=== PATIENT | female | born 1975 | race Caucasian/White ===

== ENCOUNTER 2019-06-24 09:45 | Emergency (ER) | payer MEDICAID ==
[~2019-06-24] VITALS: Ht 165.1 cm; Wt 76.4 kg
[~2019-06-24 09:45] MED LIST: HYDR1TAB PO; NO MEDICATIONS
[2019-06-24 10:32] LABS: BASOPHILS # (AUTO) 0.1 X10'3 (0-0.2); EOSINOPHILS # (AUTO) 0.2 X10'3 (0-0.9); EOSINOPHILS % (AUTO) 1.7 % (0-6); HEMOGLOBIN 14.3 g/dl (12.0-16.0); MEAN CORPUSCULAR HEMOGLOBIN 31.5 PG (27.0-31.0)
[2019-06-24 10:33] LABS: BASOPHILS % (AUTO) 1.3 % (0-1); HEMATOCRIT 40.1 % (35.0-45.0); LYMPHOCYTES # (AUTO) 2.3 X10'3 (1.1-4.8); MEAN CORPUSCULAR HGB CONC 35.7 g/dL (33.0-36.5); MEAN CORPUSCULAR VOLUME 88.3 FL (78-98); MEAN PLATELET VOLUME 8.1 FL (7.4-10.4); MONOCYTES # (AUTO) 0.4 X10'3 (0-0.9); MONOCYTES % (AUTO) 4.9 % (2-12); NEUTROPHILS # (AUTO) 6.1 X10'3 (1.8-7.7); NEUTROPHILS % (AUTO) 67.1 % (42-75); PLATELET COUNT 194 X10'3 (140-440); RED BLOOD COUNT 4.54 X10'6 (4.20-5.60); RED CELL DISTRIBUTION WIDTH 12.8 % (11.5-14.5); WHITE BLOOD COUNT 9.2 X10'3 (4.5-11.0)
[2019-06-24 10:39] LABS: ALANINE AMINOTRANSFERASE 40 U/L (12-78); ALBUMIN 3.9 G/DL (3.4-5.0); ALKALINE PHOSPHATASE 60 IU/L (46-116); ANION GAP 8 (8-16); ASPARTATE AMINO TRANSFERASE 27 U/L (10-37); BILIRUBIN,TOTAL 0.3 MG/DL (0.1-1.0); BLOOD UREA NITROGEN 10 MG/DL (7-18); BUN/CREATININE RATIO 11.5 (6.6-38.0); CALCIUM 8.7 MG/DL (8.5-10.1); CHLORIDE 102 MMOL/L (99-107); CREATININE 0.87 MG/DL (0.40-0.90); GLUCOSE 223 MG/DL (70-104); POTASSIUM 3.6 MMOL/L (3.5-5.1); SODIUM 137 MMOL/L (135-145); TOTAL CARBON DIOXIDE 27.1 MMOL/L (24-32); TOTAL PROTEIN 7.7 G/DL (6.4-8.2); eGFR 71 ML/MIN
[2019-06-24] MEDS ORDERED: normal saline 1000ML IV soln IVB ONE (11:05)
[2019-06-24] MEDS ORDERED: ondansetron/PF 4mg/2ml inj IV ONE (11:05)
[2019-06-24] MEDS ORDERED: AMOX-580 PO (11:24)
[2019-06-24 11:39] VITALS: BP 117/75
== END 2019-06-24 11:47 | disposition home or self-care (01) ==
LOC: ER 09:46
DX: J32.9 Chronic sinusitis, unspecified (principal); R11.2 Nausea with vomiting, unspecified; K21.9 Gastro-esophageal reflux disease without esophagitis; E11.9 Type 2 diabetes mellitus without complications; Z90.49 Acquired absence of other specified parts of digestive tract; Z90.710 Acquired absence of both cervix and uterus; Z90.89 Acquired absence of other organs; Z87.891 Personal history of nicotine dependence; Z56.0 Unemployment, unspecified; Z79.899 Other long term (current) drug therapy
CPT/HCPCS: 36415; 71045; 80053; 84484; 85025; 93005; 96361; 96374; 99284; J2405; J7030

== ENCOUNTER 2020-01-30 12:24 | Emergency (ER) | payer MEDICAID ==
[~2020-01-30] VITALS: Ht 165.1 cm; Wt 73.0 kg
--- NOTE | 2020-01-30 13:09 | NUR ---
PT SEEN BY DR. EPPERSON IN TRIAGE, ORDERS PLACED PER MD
[2020-01-30] MEDS ORDERED: normal saline 1000ML IV soln IVB ONE (13:10)
[2020-01-30] MEDS ORDERED: ondansetron/PF 4mg/2ml inj IV ONE (13:10)
[2020-01-30] MEDS ORDERED: morphine 4 MG/ML inj SYRINge IV PRN (13:10)
[2020-01-30 13:35] LABS: CLARITY,URINE CLEAR (Clear); COLOR,URINE STRAW (Yellow); GLUCOSE, URINE NEGATIVE (Neg); KETONES,URINE NEGATIVE (Neg); LEUKOCYTE ESTERASE ,URINE NEGATIVE (Neg); NITRITES, URINE NEGATIVE (Neg); OCCULT BLOOD,URINE NEGATIVE (Neg); PROTEIN,URINE NEGATIVE (Neg); UROBILINOGEN,URINE 0.2 E.U/dL (0.2-1.0)
[2020-01-30 13:40] LABS: UA COLLECTION TYPE CLN CATCH MIDSTREAM
[2020-01-30 13:42] LABS: BASOPHILS % (AUTO) 0.3 % (0-1); EOSINOPHILS # (AUTO) 0.3 X10'3 (0-0.9); EOSINOPHILS % (AUTO) 3.1 % (0-6); HEMOGLOBIN 14.7 g/dl (12.0-16.0); LYMPHOCYTES # (AUTO) 2.4 X10'3 (1.1-4.8); LYMPHOCYTES % (AUTO) 25.5 % (21-51); MEAN CORPUSCULAR HEMOGLOBIN 32.4 PG (27.0-31.0); MEAN CORPUSCULAR HGB CONC 34.1 g/dL (33.0-36.5); MEAN PLATELET VOLUME 8.4 FL (7.4-10.4); MONOCYTES # (AUTO) 0.4 X10'3 (0-0.9); MONOCYTES % (AUTO) 4.2 % (2-12); NEUTROPHILS # (AUTO) 6.3 X10'3 (1.8-7.7); NEUTROPHILS % (AUTO) 66.9 % (42-75); PLATELET COUNT 222 X10'3 (140-440); RED BLOOD COUNT 4.52 X10'6 (4.20-5.60); RED CELL DISTRIBUTION WIDTH 13.3 % (11.5-14.5); WHITE BLOOD COUNT 9.4 X10'3 (4.5-11.0)
[2020-01-30 13:46] LABS: ALANINE AMINOTRANSFERASE 49 U/L (12-78); ALKALINE PHOSPHATASE 78 IU/L (46-116); ANION GAP 10 (8-16); ASPARTATE AMINO TRANSFERASE 41 U/L (10-37); BILIRUBIN,TOTAL 0.4 MG/DL (0.1-1.0); BLOOD UREA NITROGEN 13 MG/DL (7-18); BUN/CREATININE RATIO 13.7 (6.6-38.0); CALCIUM 8.7 MG/DL (8.5-10.1); CHLORIDE 105 MMOL/L (99-107); CREATININE 0.95 MG/DL (0.40-0.90); GLUCOSE 155 MG/DL (70-104); LIPASE 117 U/L (73-393); POTASSIUM 3.9 MMOL/L (3.5-5.1); SODIUM 144 MMOL/L (135-145); eGFR 64 ML/MIN
[2020-01-30] MEDS ORDERED: ketorolac trometh inj. 60 MG/2 ML VIAL IM ONE (14:05)
[2020-01-30] MEDS ORDERED: HYDROcodone/acetaminophen 5mg/325mg tablet PO ONE (14:05)
[2020-01-30] MEDS ORDERED: ACET-3067 PO (14:06)
[2020-01-30] MEDS ORDERED: CYCL-1 PO (14:06)
[2020-01-30 14:20] VITALS: BP 122/87
== END 2020-01-30 14:23 | disposition home or self-care (01) ==
LOC: ER 12:24
DX: M54.5 Low back pain (principal); R11.10 Vomiting, unspecified; K21.9 Gastro-esophageal reflux disease without esophagitis; E11.9 Type 2 diabetes mellitus without complications; Z90.49 Acquired absence of other specified parts of digestive tract; Z90.710 Acquired absence of both cervix and uterus; Z90.89 Acquired absence of other organs; Z56.0 Unemployment, unspecified; Z79.899 Other long term (current) drug therapy
CPT/HCPCS: 36415; 74176; 80053; 81003; 83690; 85025; 96372; 99284; J1885

== ENCOUNTER 2020-07-06 10:53 | Emergency (ER) | payer MEDICAID ==
[~2020-07-06] VITALS: Ht 165.1 cm; Wt 75.0 kg
[~2020-07-06 10:53] MED LIST changes: +CYCL-1 PO
== END 2020-07-06 11:19 | disposition home or self-care (01) ==
LOC: ER 10:53
DX: R05 Cough (principal); Z20.828 Contact with and (suspected) exposure to other viral communicable diseases; K21.9 Gastro-esophageal reflux disease without esophagitis; E11.9 Type 2 diabetes mellitus without complications; Z90.49 Acquired absence of other specified parts of digestive tract; Z90.710 Acquired absence of both cervix and uterus; Z90.89 Acquired absence of other organs; Z56.0 Unemployment, unspecified; Z79.899 Other long term (current) drug therapy
CPT/HCPCS: 36415; 87635; 99283

== ENCOUNTER 2020-08-08 10:49 | Emergency (ER) | payer MEDICAID ==
[~2020-08-08] VITALS: Ht 165.1 cm; Wt 77.3 kg
[2020-08-08 11:26] VITALS: BP 129/96
[2020-08-08 12:53] LABS: BASOPHILS % (AUTO) 0.4 % (0-1); EOSINOPHILS # (AUTO) 0.4 X10'3 (0-0.9); EOSINOPHILS % (AUTO) 4.5 % (0-6); HEMATOCRIT 42.2 % (35.0-45.0); HEMOGLOBIN 14.6 g/dl (12.0-16.0); LYMPHOCYTES # (AUTO) 2.4 X10'3 (1.1-4.8); LYMPHOCYTES % (AUTO) 24.2 % (21-51); MEAN CORPUSCULAR HEMOGLOBIN 32.4 PG (27.0-31.0); MEAN CORPUSCULAR HGB CONC 34.6 g/dL (33.0-36.5); MEAN CORPUSCULAR VOLUME 93.4 FL (78-98); MEAN PLATELET VOLUME 8.6 FL (7.4-10.4); MONOCYTES # (AUTO) 0.5 X10'3 (0-0.9); MONOCYTES % (AUTO) 5.2 % (2-12); NEUTROPHILS # (AUTO) 6.5 X10'3 (1.8-7.7); NEUTROPHILS % (AUTO) 65.7 % (42-75); PLATELET COUNT 204 X10'3 (140-440); RED BLOOD COUNT 4.52 X10'6 (4.20-5.60); RED CELL DISTRIBUTION WIDTH 12.8 % (11.5-14.5); WHITE BLOOD COUNT 9.9 X10'3 (4.5-11.0)
[2020-08-08 13:10] LABS: ALANINE AMINOTRANSFERASE 30 U/L (12-78); ALKALINE PHOSPHATASE 79 IU/L (46-116); ANION GAP 6 (8-16); ASPARTATE AMINO TRANSFERASE 30 U/L (10-37); BILIRUBIN,TOTAL 0.4 MG/DL (0.1-1.0); BLOOD UREA NITROGEN 14 MG/DL (7-18); BUN/CREATININE RATIO 16.1 (6.6-38.0); CALCIUM 9.1 MG/DL (8.5-10.1); CHLORIDE 105 MMOL/L (99-107); CREATININE 0.87 MG/DL (0.40-0.90); GLUCOSE 238 MG/DL (70-104); POTASSIUM 4.3 MMOL/L (3.5-5.1); SODIUM 140 MMOL/L (135-145); TOTAL CARBON DIOXIDE 28.6 MMOL/L (24-32); eGFR 71 ML/MIN
== END 2020-08-08 13:50 | disposition home or self-care (01) ==
LOC: ER 10:49
DX: R06.02 Shortness of breath (principal); R07.89 Other chest pain; Z20.828 Contact with and (suspected) exposure to other viral communicable diseases; K21.9 Gastro-esophageal reflux disease without esophagitis; E11.9 Type 2 diabetes mellitus without complications; Z86.19 Personal history of other infectious and parasitic diseases; Z90.49 Acquired absence of other specified parts of digestive tract; Z90.710 Acquired absence of both cervix and uterus; Z90.89 Acquired absence of other organs; Z56.0 Unemployment, unspecified; Z79.899 Other long term (current) drug therapy
CPT/HCPCS: 36415; 71045; 80053; 84484; 85025; 93005; 99285

== ENCOUNTER 2020-08-09 09:56 | Emergency (ER) | payer MEDICAID ==
[~2020-08-09] VITALS: Ht 165.1 cm; Wt 77.3 kg
== END 2020-08-09 11:40 | disposition home or self-care (01) ==
LOC: ER 09:58
DX: Z20.828 Contact with and (suspected) exposure to other viral communicable diseases (principal); R06.00 Dyspnea, unspecified; K21.9 Gastro-esophageal reflux disease without esophagitis; E11.9 Type 2 diabetes mellitus without complications; Z90.49 Acquired absence of other specified parts of digestive tract; Z90.710 Acquired absence of both cervix and uterus; Z90.89 Acquired absence of other organs; Z56.0 Unemployment, unspecified; Z79.899 Other long term (current) drug therapy
CPT/HCPCS: 99281

== ENCOUNTER 2023-06-28 13:35 | Emergency (ER) | payer MEDICAID ==
[~2023-06-28] VITALS: Ht 165.1 cm; Wt 84.1 kg
[2023-06-28] MEDS ORDERED: BENZ-38 PO (16:54)
[2023-06-28] MEDS ORDERED: AZIT500T2 PO (16:54)
[2023-06-28] MEDS ORDERED: ALBU8HFA PO (16:54)
[2023-06-28 17:23] VITALS: BP 119/95; PULSE 83; RESP 15; TEMP 98.5; O2SAT 98
== END 2023-06-28 17:31 | disposition home or self-care (01) ==
LOC: ER 13:35
DX: J06.9 Acute upper respiratory infection, unspecified (principal); Z20.822 Contact with and (suspected) exposure to COVID-19; E11.9 Type 2 diabetes mellitus without complications; K21.9 Gastro-esophageal reflux disease without esophagitis; Z79.899 Other long term (current) drug therapy
CPT/HCPCS: 36415; 71045; 87502; 87503; 87811; 99284

== ENCOUNTER 2025-04-07 13:15 | Inpatient (IN) | payer MEDICAID ==
[~2025-04-07] VITALS: Ht 165.1 cm; Wt 75.0 kg
[~2025-04-07 13:15] MED LIST changes: +ALBU8HFA PO
--- NOTE | 2025-04-07 13:28 | ELECTROCARDIOGRAPH REPORT ---
[facility] Test Date: 2025-04-07 Test Time: 13:25:24 Pat Name: TYE MERRITT Department: EMERGENCY ROOM Room: Gender: F Clinical Engineer: ADDIS : 1975 Requested By: ZAYDA ARNETT Order Number: [id number] Reading MD: Measurements Intervals Lorraine Rate: 81 P: -20 NM: 152 QRS: 69 QRSD: 90 T: 36 QT: 377 QTc: 438 Interpretive Statements Sinus rhythm Low voltage, precordial leads Borderline ST depression, inferior leads Baseline wander in lead(s) V6 Please click the below link to view image of tracing.
[2025-04-07 14:09] LABS: MEAN PLATELET VOLUME 8.2 FL (7.4-10.4); RED CELL DISTRIBUTION WIDTH 13.0 % (11.5-14.5)
[2025-04-07 14:25] LABS: LEUKOCYTE ESTERASE ,URINE NEGATIVE (Neg); NITRITES, URINE NEGATIVE (Neg); OCCULT BLOOD,URINE NEGATIVE (Neg)
[2025-04-07 14:26] LABS: URINE HCG NEGATIVE (NEG)
[2025-04-07 14:30] LABS: UA COLLECTION TYPE CLN CATCH MIDSTREAM
[2025-04-07 14:32] LABS: CREATININE 0.99 MG/DL (0.40-0.90); PRO BRAIN NATRIURETIC PEPTIDE 113 PG/ML (0-125); TOTAL CARBON DIOXIDE 21.2 MMOL/L (24-32); eCRCL 63 ML/MIN; eGFR 60 ML/MIN
--- NOTE | 2025-04-07 15:01 | RADIOLOGY REPORT ---
CLINICAL INFORMATION: Chest pain. TECHNIQUE: Single AP portable chest radiograph was obtained. COMPARISON: DI CHEST,SINGLE VIEW on DOS: 06/28/23, CHEST,SINGLE VIEW on DOS: 08/08/20, CHEST,SINGLE VIE W on DOS: 06/24/19 FINDINGS: Lungs: Clear. Cardiac: Heart size is within normal limits. Pulmonary vasculature: Unremarkable. Mediastinum/corina: Unremarkable. Bones: No acute osseous abnormality identified. Other: No other significant findings. IMPRESSION: No evidence of acute disease in the chest.
--- NOTE | 2025-04-07 15:48 | Physician Documentation ---
History of Present Illness General Chief Complaint: Chest Pain Stated Complaint: MULTIPLE MEDICAL COMPLAINTS Time Seen by MD: 15:46 OK to notify your PCP?: No Primary Medical Doctor: [facility] Source: patient, RN notes reviewed Mode of Arrival: POV Exam Limitations: no limitations History of Present Illness Initial Comments 49-year-old female, who is a former smoker with a history of diabetes on insulin for the last 8-10 years and more recently Ozempic, presents via EMS with complaints of sharp left-sided chest pain that began at approximately 1230 today. Patient reports she was driving at the time when she had sudden onset of sharp severe left-sided chest pain that radiated into her back. Patient also had "foggy" mentation with onset, as well as shortness of breath, and left hand, left face, and left neck numbness. Symptoms improved after approximately 30 minutes, however she continues to have mild left-sided chest pain and difficulty taking a deep breath. Pain slightly increases with taking a deep breath. She denies history of similar chest pain. She has never had a stress test or cardiac workup. Later, patient notes that yesterday she had a slight stabbing pain in the left chest that lasted a few seconds. Medication Reconciliation Allergies: Coded Allergies: No Known Allergies (Unverified , 04/07/25) Scheduled Cyclobenzaprine* (Cyclobenzaprine*), 1 TAB PO TID Hydrocodone/Acetaminophen (Vicodin 5-500 Tablet), 1 TAB PO Q4H PRN FOR PAIN Insulin Glargine,Hum.rec.anlog (Basaglar Kwikpen U-100), 10 HS, (Reported) Semaglutide (Ozempic), 2 MG SUBCUT Q7D, (Reported) Scheduled PRN albuterol inhaler (Pro-Air Inhaler), 1 PUFF PO TID PRN for stridor Discontinued Medications [No Medications], (Reported) Discontinued Reason: patient no longer taking Past Medical History Past Medical History: GERD, Diabetes, *INFECTIOUS DZ* Past Surgical History: cholecystectomy, hysterectomy, tonsillectomy Smoking: Cigarettes Alcohol Use: Rarely Occupation: unemployed Review of Systems All Other Systems at this time: Reviewed and Negative ROS left chest pain as well as other positive symptoms stated above in the HPI, otherwise all systems are reviewed and negative. Physical Exam Physical Exam Vital Signs: RN Vital Signs have been reviewed: Yes, Temperature: 97.5, Source: Temporal, Heart Rate: 84, Respiratory Rate: 22, BP: 160/96, Pulse Oximetry: 100, Weight: 75.000 Oxygen Flow Rate: 0 Pulse Oximetry Reflects: adequate oxygenation Physical Exam VITALS: Reviewed and as above. GENERAL: Alert, no apparent distress. HEENT: Normocephalic, atraumatic, PERRL, EOMI, dry mucosa RESPIRATORY: Lungs clear, normal breath sounds, no respiratory distress. CHEST: No reproducible chest wall tenderness. No accessory muscle use, no retractions CV: Regular rate, rhythm, no edema, no murmur, No: JVD GI: Soft, non-tender, bowels sounds present, no rebound, guarding, or rigidity MUSCULOSKELETAL No deformities, no edema SKIN: Warm and dry, no rash NEURO: Oriented x4, No motor or sensory deficit PSYCH: Normal mood and affect, no agitation Progress Progress Note 1641: Hospitalist paged. 1743: Admission orders placed by Dr. Meier, hospitalist. Results/Orders Reviewed/noted all lab results: Yes Results/Orders Orders - ZAYDA PINZON MD Chest,Single View (04/07/25 13:24) Monitor (04/07/25 13:24) Saline Lock (04/07/25 13:24) Oxygen (04/07/25 13:24) Page Hospitalist (04/07/25 16:41) Fill Out Med Reconciliation (04/07/25 16:41) Completed Orders - ZAYDA PINZON MD Chest,Single View (04/07/25 13:24) Cbc/Diff (04/07/25 13:24) BMP (04/07/25 13:24) PBNP (04/07/25 13:24) Electrocardiogram (04/07/25 13:24) Hs Troponin I W Calculations (04/07/25 13:24) Hs Troponin I W Calculations (04/07/25 15:24) Hs Troponin I W Calculations (04/07/25 16:24) Urinalysis, Cult If Indicated (04/07/25 13:25) Hcg, Ur Ql (04/07/25 13:25) D-Dimer (04/07/25 16:19) Aspirin 81mg Chew Tablet (Aspirin 81mg C (04/07/25 16:30) Vital Signs 04/07/25 04/07/25 13:16 16:20 Temp 97.5 Pulse 84 Resp 22 16 B/P (MAP) 160/96 Pulse Ox 100 O2 Flow Rate 0 Laboratory Tests Test 04/07/25 13:25 04/07/25 13:32 04/07/25 15:17 04/07/25 16:30 Urine Specimen Description Cln catch midstream Urine Color Yellow Urine Clarity Clear Urine pH 6.5 Urine Specific [place] <=1.005 Urine Protein Negative Urine Glucose (UA) Negative Urine Ketones Negative Urine Occult Blood Negative Urine Nitrite Negative Urine Bilirubin Negative Urine Urobilinogen 0.2 Urine Leukocyte Esterase Negative Urine Culture Indicated Not ind Volume Urine Centrifuged 10 ml Urine HCG, Qualitative Negative Urine Comment White Blood Count 6.7 Red Blood Count 4.58 Hemoglobin 14.2 Hematocrit 40.1 Mean Corpuscular Volume 87.7 Mean Corpuscular Hemoglobin 31.0 Mean Corpuscular Hemoglobin Concent 35.3 Red Cell Distribution Width 13.0 Platelet Count 305 Mean Platelet Volume 8.2 Neutrophils (%) (Auto) 53.6 Lymphocytes (%) (Auto) 37.5 Monocytes (%) (Auto) 5.8 Eosinophils (%) (Auto) 2.4 Basophils (%) (Auto) 0.7 Neutrophils # (Auto) 3.6 Lymphocytes # (Auto) 2.5 Monocytes # (Auto) 0.4 Eosinophils # (Auto) 0.2 Basophils # (Auto) 0.0 CBC Comment D-Dimer 0.60 H D-Dimer Comment Sodium Level 140 Potassium Level 3.5 Chloride Level 107 Carbon Dioxide Level 21.2 L Anion Gap 12 Blood Urea Nitrogen 13 Creatinine 0.99 H Estimated GFR/1.73 m2 60 BUN/Creatinine Ratio 13.1 Glucose Level 117 H Calcium Level 9.6 Troponin I High Sensitivity < 4 L 4 5 Troponin I High Sens Percent Delta 25 Troponin I Hi Sens Absolute Change 1 Pro-B-Type Natriuretic Peptide 113 Albumin 4.2 Chemistry Comments EKG/XRAY/CT/US/VASC/MRI EKG : Intepreting Monitor?: Yes Additional Comment 9831: EKG interpreted by myself to show NSR at a rate of 81bpm. Normal axis, nonspecific ST abnormalities. No STEMI. Chest X-Ray : Additional Comments CLINICAL INFORMATION: Chest pain. TECHNIQUE: Single AP portable chest radiograph was obtained. COMPARISON: DI CHEST,SINGLE VIEW on DOS: 06/28/23, CHEST,SINGLE VIEW on DOS: 08/08/20, CHEST,SINGLE VIEW on DOS: 06/24/19 FINDINGS: Lungs: Clear. Cardiac: Heart size is within normal limits. Pulmonary vasculature: Unremarkable. Mediastinum/corina: Unremarkable. Bones: No acute osseous abnormality identified. Other: No other significant findings. IMPRESSION: No evidence of acute disease in the chest. Reviewed by myself. Heart Score: Heart Score Response (Comments) Value History Moderate Suspicious 1 EKG Repolarization Disturb 1 Age 45-64 1 Risk Factors 1 or 2 risk factors 1 Troponin Normal limit 0 Total 4 Medical Decision Making Additional info obtained from: old records (last seen in 2022 for respiratory infection, no prior admissions) Findings The patient's EKG was interpreted by me as being a normal axis with a sinus rhythm of [address]-elevation or ST-depression appreciated my impression is a normal EKG with a normal axis. Time of EKG is 1325 The patient presented with a an episode of chest pain, the patient's EKG was int erpreted by myself her chest x-ray was independently interpreted by me as showing no acute abnormality it showed normal-appearing lung connelly normal mediastinum and normal cardiac silhouette. Her labs were fairly unremarkable. The patient does have some risk factors for coronary disease she will be admitted to the hospitalist for further evaluation. Prior hospitalizations have been reviewed all labs were reviewed. The patient's railroad brakeman was interpreted as a sinus rhythm and her pulse oximetry was interpreted as normal and adequate. Departure Time of Disposition: 16:41 Disposition: ADMITTED INPATIENT Admitted to Inpatient Unit: yes, to hospitalist Impression: Primary Impression: Chest pain Qualified Codes: R07.9 - Chest pain, unspecified Condition: Fair Education Educated: Patient Educated regarding: diagnosis, treatment, prognosis Signature Scribe Signature: Scribed for Zayda Pinzon MD by Kelly Fletcher . 04/07/25 16:28 Attestation: The note accurately reflects work and decisions made by me.Zayda Pinzon MD 04/10/25 11:57 ZAYDA PINZON MD Apr 07, 2025 15:48 KELLY SHAIKH Apr 07, 2025 16:28
--- NOTE | 2025-04-07 17:41 | HISTORY AND PHYSICAL ---
History & Physical Providers to ~ History of Present Illness Reason for Admit\Complaint: Chest pain History of Present Illness 49 years old female with a history of diabetes mellitus, requiring insulin, presented to the ER for evaluation of left-sided chest pain which started around 12:30 p.m. today. Patient reported she was driving at that time and had sudden onset of pain which radiated towards her back. Patient also felt foggy in her brain. Had shortness of breaths and numbness of the left face hand and neck. Symptom lasted about 30 minutes and patient is continuing to have some difficulty taking deep breaths. She denies having any recent fever chills nausea vomiting dysuria frequency urgency hematuria melena or bright red blood per rectum. She denies having any focal neurological symptoms. Patient is being admitted for further evaluation Allergies: Coded Allergies: No Known Allergies (Unverified , 04/07/25) Home Medications Home Medications Active Pro-Air Inhaler (Albuterol) 8.5 Gm Inhaler 1 Puff PO TID PRN Cyclobenzaprine* (Cyclobenzaprine HCl) 10 Mg Tablet 1 Tab PO TID 5 Days Vicodin 5-500 Tablet (Acetaminophen/Hydrocodone Bitart) 5 Mg/500 Mg Tablet 1 Tab PO Q4H PRN FOR PAIN 5 Days Reported [No Medications] Past Medical History Past Medical History IDDM Past Surgical History Surgical History Comment Cholecystectomy, hysterectomy, tonsillectomy Family History Family History: Family history was reviewed; no changes noted. Past Social History Social History Comment Does not drink or do any drugs. 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 Health Maintenance Health Maintenance Patient is current on immunizations ROS ROS All other systems are reviewed and are negative except as mentioned in HPI Exam Vitals: Vital Signs Date Time Temp Pulse Resp B/P (MAP) Pulse Ox O2 Delivery O2 Flow Rate FiO2 04/07/25 16:20 16 04/07/25 13:16 97.5 84 100 0 General: Awake alert cooperative in no acute distress HEENT: Normocephalic, atraumatic, extraocular movements intact, sclerae anicteric, conjunctiva pink, moist oral mucosa. Neck: Supple, no JVD, trachea midline Chest: Clear to auscultation, no wheezes crackles rhonchi Cardiovascular: Regular rate rhythm, no murmur or gallop rub Abdomen: Soft, nontender, no organomegaly Extremities: No cyanosis clubbing or edema Central Nervous System: Nonfocal. Moves all four extremities Musculoskeletal: No joint swelling or deformities Skin: No rash or ulcers Diagnostic Data Last Recorded Lab Results: 04/07/25 1332 04/07/25 1332 Diagnostic Data: Laboratory Tests Test 04/07/25 13:32 D-Dimer 0.60 MG/L FEU (0-0.50) H D-Dimer Comment Additional Plan 49 years old female presented to the ER for evaluation of left-sided chest pain 1. Left-sided chest pain: Likely musculoskeletal ACS ruled out with negative troponin. We will check a Lexiscan and CTA to rule out PE. 2. IDDM: Carb controlled diet. Hyper/hypoglycemia protocol 3. Code status: Discussed with the patient. She wishes to be a Full code Date of Service: Apr 07, 2025 Billing Provider: AKILAH DELGADO MD Common Visit Codes: [id number] INP/OBS CARE (HIGH) AKILAH DELGADO MD Apr 07, 2025 17:41
[2025-04-07] MEDS ORDERED: PERFLUTREN PROTEIN-A MICROSPHR (Optison) 0.22 MG/ML 3ML VIAL IV ONE (17:45)
[2025-04-07] MEDS ORDERED: magnesium Cl slow-release 64mg tablet PO PRN (17:45)
[2025-04-07] MEDS ORDERED: magnesium sulf-water 4G/100mL 100 ML IV PRN (17:45)
[2025-04-07] MEDS ORDERED: potassium Cl 40MEQ/1/2NS 520ml 520 ML IV PRN (17:45)
[2025-04-07] MEDS ORDERED: ondansetron/PF 4mg/2ml inj IV PRN (17:45)
[2025-04-07] MEDS ORDERED: potassium Cl 20 mEq SR tablet PO PRN ×2 (17:45)
[2025-04-07] MEDS ORDERED: magnesium sulf-water 2g/50mL 50 ML IV PRN (17:45)
[2025-04-07] MEDS: normal saline 1000ml 1,000 ML IV SCH (18:14)
[2025-04-07] MEDS: K and/or MAG REPLACEMENT MC SCH (20:00)
[2025-04-08] MEDS: HYDROcodone/acetaminophen 5mg/325mg tablet PO PRN (04:30)
[2025-04-08 04:50] VITALS: BP 134/95; PULSE 66; RESP 19; TEMP 97.5; O2SAT 100
[2025-04-08] MEDS ORDERED: INSU100I31 (05:18)
[2025-04-08] MEDS ORDERED: SEMA2PEN SUBCUT (05:18)
[2025-04-08 06:00] VITALS: BP 134/95; PULSE 66; RESP 19; TEMP 97.5; O2SAT 100
[2025-04-08 06:31] LABS: MEAN PLATELET VOLUME 7.8 FL (7.4-10.4); RED CELL DISTRIBUTION WIDTH 13.3 % (11.5-14.5)
[2025-04-08 06:52] VITALS: RESP 19; O2SAT 100
[2025-04-08 06:54] LABS: CREATININE 1.09 MG/DL (0.40-0.90); TOTAL CARBON DIOXIDE 27.3 MMOL/L (24-32); eCRCL 57 ML/MIN; eGFR 54 ML/MIN
[2025-04-08] MEDS ORDERED: DEXTROSE 15 GM of carb/4 tabs (each vial/BOTTLE has 4 tablets) PO PRN ×2 (15:40)
[2025-04-08] MEDS ORDERED: dextrose 50%-water 50ml dispensing syringe IV PRN ×2 (15:40)
[2025-04-08] MEDS ORDERED: glucagon, human recombinant 1mg kit SUBCUT PRN (15:40)
--- NOTE | 2025-04-08 15:40 | PROGRESS NOTE ---
Daily Progress Note Providers to CC ~ Antibiotic Timeout Antibiotic Ordered?: No Subjective Patient is seen resting comfortably. Continues to have left-sided chest pain. Objective Vital Signs Date Time Temp Pulse Resp B/P (MAP) Pulse Ox O2 Delivery O2 Flow Rate FiO2 04/08/25 08:00 Room Air 04/08/25 06:52 19 100 04/08/25 06:00 97.5 66 134/95 (108) 04/07/25 13:16 0 Result Diagram: 04/08/25 0541 04/08/25 0541 Awake alert cooperative in no acute distress HEENT normocephalic atraumatic extraocular movements intact Neck supple, no JVD Chest: Clear to auscultation, no wheezes crackles rhonchi Heart: Regular rate rhythm, no murmur or gallop rub Abdomen is soft nontender no organomegaly Extremities no cyanosis clubbing or edema Neuro exam is nonfocal Musculoskeletal: Left chest wall tenderness. No joint swelling or deformities. Coagulation Studies Laboratory Tests Test 04/07/25 13:32 D-Dimer 0.60 MG/L FEU (0-0.50) H D-Dimer Comment Other Results Medications reviewed Problem\Assessment\Plan 49 years old female presented to the ER for evaluation of chest pain 1. Left-sided chest pain: Likely musculoskeletal. Lexiscan is pending. Ruled out for ACS by negative cardiac enzymes. 2. IDDM: Carb controlled diet. Hyper/hypoglycemia protocol. 3. Code status: Full code Date of Service: Apr 08, 2025 Billing Provider: AKILAH DELGADO MD Common Visit Codes: [id number] INP/OBS CARE(MOD) AKILAH DELGADO MD Apr 08, 2025 15:39
[2025-04-08] MEDS: INSULIN LISPRO 100 UNIT/ML INSULN.PEN MULTI-DOSE SQ SCH (17:00)
[2025-04-08 18:00] VITALS: BP 123/77; PULSE 82; RESP 17; TEMP 98.4; O2SAT 100
[2025-04-08 22:00] VITALS: BP 113/74; PULSE 69; RESP 16; TEMP 97.8; O2SAT 99
[2025-04-09] VITALS (11 sets, daily range): BP systolic 94–119; BP diastolic 57–81; PULSE 63–110; RESP 13–16; TEMP 97.3–97.7; O2SAT 97–100
[2025-04-09 06:35] LABS: MEAN PLATELET VOLUME 7.8 FL (7.4-10.4); RED CELL DISTRIBUTION WIDTH 13.3 % (11.5-14.5)
[2025-04-09 06:55] LABS: CREATININE 0.76 MG/DL (0.40-0.90); TOTAL CARBON DIOXIDE 22.8 MMOL/L (24-32); eCRCL 81 ML/MIN; eGFR 81 ML/MIN
[2025-04-09] MEDS ORDERED: metoprolol tartrate 1mg/ml inj IV PRN (11:35)
[2025-04-09] MEDS ORDERED: aminophylline 250mg/10ml inj. IV PRN (11:35)
[2025-04-09] MEDS: regadenoson 0.4mg/5ml syringe IV PRN (13:50)
--- NOTE | 2025-04-09 14:49 | RADIOLOGY REPORT ---
Reason for study/Clinical History: Severe left-sided chest pain Comparison Study: None Myocardial Perfusion Study with SPECT Technique: The patient received an intravenous injection of 8.7 mCi of technetium-99m Sestamibi whi hardik at rest. After a short delay, SPECT tomographic images of the heart were obtained. The patient abraham bond went to the stress lab where they received an intravenous Lexiscan utilizing standard protocol. 35.1 mCi of technetium-99m Sestamibi was injected intravenously immediately after the start of the infusion. Gated SPECT tomographic images of the heart were acquired and processed. Findings: Rotating planar images show no significant attenuation artifact. The left ventricular size is within normal limits. Stress tomographic images demonstrate normal perfusion. Resting tomographic images demonstrate a similar pattern. Gated portion of the study shows normal wall motion and myocardial thickening. The left ventricular ejection fraction is 70%. (normal greater than 50%) Impression: Normal left ventricular size, wall motion, and function, without evidence of infarction or of myocard ium at ischemic risk. The left ventricular ejection fraction is 70%.
--- NOTE | 2025-04-09 19:13 | CARDIOLOGY REPORT ---
APPROVED REPORT EXAM: Comprehensive 2D, Doppler, and color-flow Echocardiogram. Patient Location: 4013 [address] Heart Rate: 60's bpm Rhythm: SINUS Indications CORONARY ARTERY DISEASE CHEST PAIN SHORTNESS OF BREATH DIABETES MELLITUS Audience Coordinator: NONE Previous echo: NONE 2D Dimensions RVDd 2.5 cm IVSd 1.0 (0.7-1.1cm) LVDd 4.4 cm PWd 1.0 (0.7-1.1cm) IVSs 1.3 (0.8-1.2cm) LVDs 2.6 (2.5-4.0cm) PWs 1.4 (0.8-1.2cm) LVOT Diameter 2.06 (1.8-2.4cm) LVEF(%) 72.5 (>50%) FS (%) 41.4 % SV 62.9 ml CO 4.0 L/min M-Mode Dimensions Left Atrium(MM) 3.42 (2.5-4.0cm) Aortic Root 2.64 (2.2-3.7cm) MV EPSS 0.3 (<0.5cm) Aortic Valve AoV Peak Gatito. 135.1 cm/s AoV VTI 27.0 cm AO Peak GR. 7.3 mmHg AO Mean GR. 4 mmHg LVOT VTI 20.57 cm LVOT Peak Gatito. 93.0 cm/s DELIA(VTI)/BSA 2.53 cm2/m2 DELIA (VTI) 2.53 cm2 Mitral Valve MV E Velocity 74.9 cm/s MV Peak Gr. 3 mmHg MV DECEL TIME 240 ms MV A Velocity 74.6 cm/s MV PHT 68 ms E/A Ratio 1.0 MVA (PHT) 3.24 cm2 MV VMax84.6 cm/s TDI Lateral E' P. V11.85 cm/s E/Lateral E' 6.3 Tricuspid Valve TR P. Velocity 181 cm/s RAP ESTIMATE 10 mmHg TR Peak Gr. 13 mmHg RVSP 23 mmHg Pulmonary Vein S1 Velocity 56.7 cm/s D2 Velocity 41.9 cm/s PVa Ofwrvocu23.3 cm/s PVa [id number] msec LEFT VENTRICLE Normal LV size and wall thickness. Overall systolic function is normal. Overall LVEF is 65-70%. RIGHT VENTRICLE RV is normal size and function. ATRIA The left atrium size is normal. AORTIC VALVE Trileaflet AV appears normal without stenosis. No insufficiency. MITRAL VALVE Mild MV annular calcification without stenosis. Trace regurgitation. TRICUSPID VALVE TV appears structurally normal with trace regurgitation. PULMONIC VALVE Normal PV without stenosis, physiologic insufficiency. GREAT VESSELS The aortic root is normal in size. PERICARDIUM Normal pericardium. No effusion. Other Information Study Quality: Adequate Conclusion Overall LVEF is 65-70%. Normal LV size and wall thickness. Overall systolic function is normal. RV is normal size and function. Trileaflet AV appears normal without stenosis. No insufficiency. Mild MV annular calcification without stenosis. Trace regurgitation. TV appears structurally normal with trace regurgitation. Normal PV without stenosis, physiologic insufficiency. Normal pericardium. No effusion.
--- NOTE | 2025-04-09 21:12 | DISCHARGE SUMMARY ---
Discharge Summary Providers to CC ~ Discharge Summary Admission Diagnosis: Chest pain Hospital Course DATE OF ADMISSION: 04/07/2025 DATE OF DISCHARGE: 04/09/2025 Discharge Diagnosis\\Comment: Left-sided chest pain secondary to cervical radiculopathy mi ruled out, insulin- dependent diabetes mellitus Operations\\Procedures: None Consultants: None Complications: None Condition on DC: Stable Continued Medications: albuterol inhaler (Pro-Air Inhaler) 8.5 Gm Inhaler 1 PUFF PO TID PRN for stridor, #1 INHALER Cyclobenzaprine* (Cyclobenzaprine*) 10 Mg Tablet 1 TAB PO TID for 5 Days, #15 TAB Hydrocodone/Acetaminophen (Vicodin 5-500 Tablet) 5 Mg/500 Mg Tablet 1 TAB PO Q4H PRN FOR PAIN for 5 Days, TAB 0 Refills Insulin Glargine,Hum.rec.anlog (Basaglar Kwikpen U-100) 100 Unit/Ml (3 Ml) Insuln.pen 10 HS for dm takes 1830 Semaglutide (Ozempic) 2 Mg/0.75 Ml (8 Mg/3 Ml) Pen.injctr 2 MG SUBCUT Q7D for 30 Days, #3 ML 0 Refills Discharge Summary: The patient was admitted by AKILAH Guaman MD, with the following HPI:"49 years old female with a history of diabetes mellitus, requiring insulin, presented to the ER for evaluation of left-sided chest pain which started around 12:30 p.m. today. Patient reported she was driving at that time and had sudden onset of pain which radiated towards her back. Patient also felt foggy in her brain. Had shortness of breaths and numbness of the left face hand and neck. Symptom lasted about 30 minutes and patient is continuing to have some difficulty taking deep breaths. She denies having any recent fever chills nausea vomiting dysuria frequency urgency hematuria melena or bright red blood per rectum. She denies having any focal neurological symptoms. Patient is being admitted for further evaluation." The patient has a negative Lexiscan stress test and negative serial troponins. Echocardiogram demonstrated an LVEF of 65-70% without any other significant findings. The patient informed her nurse and myself that she is going to see pain management and gets injections by pain management into her neck. The patient is chest pain was secondary to a cervical radiculopathy the patient is requesting an MRI of her cervical spine which I for me she would need to obtain through pain management doctor or her primary care provider since they can compare with the images from previous images and this is a chronic condition. The patient has insulin-dependent diabetes mellitus hemoglobin A1c is 6.0 was on the hyper and hypoglycemic protocol in her blood sugars were controlled. Gen. No acute distress alert and oriented 4 Lungs clear to ascultation bilaterally, no wheezes rales or rhonchi appreciated Heart normal sinus rhythm no murmurs rubs or clicks noted Abdomen soft nontender bowel sounds are normoactive Lower extremities no clubbing cyanosis, nor edema appreciated bilaterally The patient felt ready to be discharged and was medically cleared to be discharged on 04/09/2025 The patient was seen and evaluated on day of discharge. Time spent on discharge 35 minutes *Problems/Diagnosis: (1) Chest pain Status: Acute Total Time Spent on D/C: > 30 Minutes Date of Service: Apr 09, 2025 Billing Provider: ALEXIS GARCES DO Common Visit Codes: 32061-ERE/OBS DISCH DAY >30min Problem Qualifiers (1) Chest pain: Qualified Codes: R07.9 - Chest pain, unspecified ALEXIS GARCES DO Apr 09, 2025 21:12
== END 2025-04-09 18:01 | disposition home or self-care (01) | DRG 48 ==
LOC: ER 13:16 → ED HOLD 17:43 → ORTHO 4S 04-08 04:35
PROVIDERS: ADMIT Internal Medicine; ATTEND Internal Medicine
PROC: 4A02XM4 Measurement of Cardiac Total Activity, External Approach (ICD-10-PCS; principal; 2025-04-09)
PROC: 3E033HZ Introduction of Radioactive Substance into Peripheral Vein, Percutaneous Approach (ICD-10-PCS; 2025-04-09)
DX: M54.12 Radiculopathy, cervical region (principal); E11.9 Type 2 diabetes mellitus without complications; K21.9 Gastro-esophageal reflux disease without esophagitis; Z87.891 Personal history of nicotine dependence; Z90.710 Acquired absence of both cervix and uterus; Z79.4 Long term (current) use of insulin
CPT/HCPCS: 36415; 71045; 78452; 80048; 81003; 81025; 82948; 83036; 83735; 83880; 84484; 85025; 85379; 87081; 93005; 93017; 93306; 99285; A9500; G0378; J1815; J2785; J7030